=== PATIENT | male | born 1960 | race Caucasian/White ===

== ENCOUNTER 2023-07-17 11:09 | Emergency (ER) | payer OTHER, SELFPAY ==
[2023-07-17] VITALS (16 sets, daily range): BP systolic 151–211; BP diastolic 84–112; PULSE 81–104; RESP 10–33; TEMP 36.6; O2SAT 91–100; BMI 29.8
[2023-07-17 12:12] LABS: Alanine Aminotransferase 47 IU/L (<50); Albumin 4.8 g/dL (3.5-5.0); Albumin Globulin Ratio 1.4 (1.0-2.8); Alkaline Phosphatase 37 U/L (38-126); Aspartate Aminotransferase 32 IU/L (17-59); BUN Creatinine Ratio 13.1 (6-22); Bilirubin Total 0.8 mg/dL (0.2-1.3); Blood Urea Nitrogen 17 mg/dL (9-20); Calcium 10.3 mg/dL (8.4-10.2); Carbon Dioxide 25 mmol/L (22-32); Chloride 96 mmol/L (98-107); Estimated Glomerular Filt Rate > 60 mL/min (>60); Globulin 3.4 g/dL (1.7-4.1); Glucose 197 mg/dL (80-110); HEMOLYSIS 28 (0-50); Lipase 36 U/L (23-300); Potassium 4.2 mmol/L (3.4-5.1); Sodium 132 mmol/L (137-145); Total Protein 8.2 g/dL (6.3-8.2)
[2023-07-17 12:14] LABS: Creatine Kinase 97 U/L (55-170)
[2023-07-17 12:22] LABS: Add Manual Diff / Slide Review NO; Basophils Absolute Auto 0 /uL (0-100); Basophils Percent Auto 0.3 % (0-2); Eosinophils Absolute Auto 0 /uL (0-450); Eosinophils Percent Auto 0.1 % (2-4); Hemoglobin 15.6 g/dL (13.5-17.5); Lymphocytes Absolute Auto 500 /uL (1100-4500); Lymphocytes Percent Auto 4.4 % (25-40); Mean Corpuscular HGB Conc 35.4 % (30-36); Mean Corpuscular Hemoglobin 29.4 PG (26-34); Mean Corpuscular Volume 82.9 fL (80-100); Monocytes Absolute Auto 800 /uL (0-900); Monocytes Percent Auto 7.5 % (3-14); Neutrophils Absolute Auto 9300 /uL (1500-7000); Neutrophils Percent Auto 87.7 % (50-75); Platelet Count 246 X10^3/uL (150-400); Red Blood Cell Count 5.31 X10^6/uL (4.5-5.9); Red Cell Distribution Width 13.5 % (11.6-14.8); White Blood Cell Count 10.6 X10^3/uL (4.5-11.0)
[2023-07-17 12:23] LABS: Bacteria Urine None Seen; Culture Indicated Urine Cult Not Indicated; RBC Urine 1-5/HPF (0-5/HPF); Squamous Epithelial Cell Urine None Seen (0-5/HPF); WBC Urine None Seen (0-5/HPF)
[2023-07-17 12:27] LABS: Troponin I < 0.012 ng/mL (0.01-0.034)
[2023-07-17] MEDS: ONDANSETRON 4 MG/2 ML INJ IV (12:28)
[2023-07-17] MEDS: KETOROLAC 30 MG/ML VIAL 15 MG IV (12:59)
--- NOTE | 2023-07-17 14:43 | ED_ITS ---
HPI - Abdominal Pain General Chief Complaint: Abdominal Pain Stated Complaint: nausea/abd pain/vomitting/ Time Seen by Provider: 07/17/23 14:38 Source: patient Mode of arrival: Ambulatory Limitations: no limitations History of Present Illness HPI narrative: This is a 62-year-old male with history of prediabetes, dyslipidemia and known chronic kidney disease. Patient states last night after eating dinner he started developed left lower quadrant pain. He states it stayed in that position. He has not had any back or flank pain. He states has become increasingly intense overnight with waxing and waning intensity but severe throughout. Had trouble sleeping last night. Denies fevers did have nausea and vomiting overnight. Had bowel movement yesterday which he describes as medium, formed without any bright red blood or black. No dysuria urgency or frequency or hematuria. Patient has not had similar symptoms in the past. States he takes metformin and lovastatin for home medications. Has been told his creatinine is a little bit elevated in the past. Has had prior orthopedic surgeries for his knee and elbow, prior appendectomy, had back surgery in May. No known drug allergies. No tobacco other than a cigar when he coughs. No alcohol, no recreational drugs. His primary care is [facility] in [place]. They are currently transitioning up to the [facility]. Related Data Home Medications Medication Instructions Recorded Confirmed fenofibrate nanocrystallized 145 145 mg PO DAILY 07/17/23 07/17/23 mg tablet losartan 50 mg tablet 50 mg PO DAILY 07/17/23 07/17/23 lovastatin 40 mg tablet 40 mg PO DAILY 07/17/23 07/17/23 metformin 1,000 mg tablet 1,000 mg PO BID 07/17/23 07/17/23 Previous Rx's Medication Instructions Recorded oxycodone 5 mg tablet 5 mg PO Q6H PRN pain #20 tabs 07/17/23 tamsulosin 0.4 mg capsule (Flomax) 0.4 mg PO DAILY #7 caps 07/17/23 Allergies Allergy/AdvReac Type Severity Reaction Status Date / Time No Known Drug Allergies Allergy Verified 07/17/23 11:34 Review of Systems Review of Systems ROS Unobtainable: All systems reviewed & are unremarkable except as noted in HPI and below Patient History Social History Smoking Status: Former smoker Smoking Status: Former smoker alcohol intake frequency: a few times a week Substance Use Type: does not use Exam Narrative Exam Narrative: GENERAL: Alert and oriented x three, male in mild distress. Patient has received pain medication. HEENT: Head normocephalic, atraumatic, EOMI, pupils reactive, face symmetric, moist mucous membranes NECK: Supple, full range of motion CARDIOVASCULAR: Regular rate and rhythm without murmurs, rubs or gallops. RESPIRATORY: Breath sounds equal bilaterally, no wheezes rales or rhonchi. ABDOMEN: Soft, nontender. Normoactive bowel sounds all 4 quadrants. No guarding or rebound, rigidity, no mass : No CVA tenderness EXTREMITIES: Normal range of motion, no clubbing or edema. Neurovascularly intact NEUROLOGICAL: Cranial nerves II through XII grossly intact. Moving all extremities SKIN: Warm, dry, no petechiae, no rashes or lesions. Initial Vital Signs Initial Vital Signs: Vital Signs Temperature 97.9 F 07/17/23 11:31 Pulse Rate 104 H 07/17/23 11:31 Respiratory Rate 16 07/17/23 11:31 Blood Pressure 193/112 H 07/17/23 11:31 Pulse Oximetry 96 07/17/23 11:31 Oxygen Delivery Method Room Air 07/17/23 11:31 Course Orders Ordered: ED Orders 07/17/23 11:35 EKG-12 Lead Stat 07/17/23 11:58 Complete Blood Count AUTO DIFF Stat Comprehensive Metabolic Panel Stat Lipase Stat Troponin & CK Cardiac Panel Stat 07/17/23 12:00 Urine Microscopic Stat 07/17/23 14:52 CT abdomen pelvis w con Stat Discontinued Medications Sodium Chloride (Normal Saline 0.9%) 1,000 mls @ 1,000 mls/hr IV BOLUS ONE Stop: 07/17/23 15:52 Last Infusion: 07/17/23 17:00 Dose: Infused Documented By: Admin: 07/17/23 15:13 Dose: 1,000 mls/hr Documented By: URVASHI Ketorolac Tromethamine (Ketorolac 30 Mg/Ml Vial) 15 mg IV NOW ONE Stop: 07/17/23 12:42 Last Admin: 07/17/23 12:59 Dose: 15 mg Documented By: URVASHI Morphine Sulfate (Morphine 4 Mg/Ml Inj) 4 mg IV NOW ONE Stop: 07/17/23 16:37 Last Admin: 07/17/23 16:57 Dose: Not Given Documented By: URVASHI Ondansetron HCl (Ondansetron 4 Mg Odt) 4 mg PO NOW PRN PRN Reason: Nausea And Vomiting Ondansetron HCl (Ondansetron 4 Mg/2 Ml Inj) 4 mg IV NOW PRN PRN Reason: Nausea And Vomiting Last Admin: 07/17/23 12:28 Dose: 4 mg Documented By: URVASHI Oxycodone/Acetaminophen (Oxycodone/Acetaminophen 5/325 Tablet) 2 tab PO NOW ONE Stop: 07/17/23 16:57 Last Admin: 07/17/23 16:59 Dose: 2 tab Documented By: URVASHI Vital Signs Vital signs: Vital Signs - 8 hr 07/17/23 11:31 07/17/23 11:59 07/17/23 12:00 Temperature 97.9 F Pulse Rate 104 H 93 H Respiratory Rate 16 Blood Pressure 193/112 H 196/101 H Pulse Oximetry 96 97 Oxygen Delivery Method Room Air 07/17/23 12:00 07/17/23 12:30 07/17/23 12:31 Temperature Pulse Rate 93 H 88 Respiratory Rate 10 L Blood Pressure 181/87 H Pulse Oximetry 97 99 Oxygen Delivery Method 07/17/23 12:31 07/17/23 13:00 07/17/23 13:01 Temperature Pulse Rate 87 91 H Respiratory Rate 10 L 33 H Blood Pressure 211/110 H Pulse Oximetry 98 96 Oxygen Delivery Method 07/17/23 13:01 07/17/23 13:30 07/17/23 13:31 Temperature Pulse Rate 89 90 91 H Respiratory Rate 23 Blood Pressure Pulse Oximetry 91 93 93 Oxygen Delivery Method 07/17/23 13:31 07/17/23 14:00 07/17/23 14:00 Temperature Pulse Rate 86 Respiratory Rate 16 Blood Pressure 158/87 H 151/84 H Pulse Oximetry 95 Oxygen Delivery Method Room Air 07/17/23 14:30 07/17/23 14:30 07/17/23 15:09 Temperature Pulse Rate 85 88 Respiratory Rate Blood Pressure 163/93 H Pulse Oximetry 97 97 Oxygen Delivery Method 07/17/23 15:30 07/17/23 16:00 07/17/23 16:15 Temperature Pulse Rate 81 84 Respiratory Rate Blood Pressure 186/94 H Pulse Oximetry 96 96 Oxygen Delivery Method 07/17/23 16:15 07/17/23 16:30 07/17/23 16:30 Temperature Pulse Rate 86 94 H Respiratory Rate Blood Pressure 179/91 H Pulse Oximetry 98 100 Oxygen Delivery Method MDM - Abdominal Pain Lab Data 07/17/23 11:58 07/17/23 11:58 Labs: Lab Results 07/17/23 07/17/23 Range/Units 11:58 12:00 WBC 10.6 (4.5-11.0) X10^3/uL RBC 5.31 (4.5-5.9) X10^6/uL Hgb 15.6 (13.5-17.5) g/dL Hct 44.0 (41-53) % MCV 82.9 (80-100) fL MCH 29.4 (26-34) PG MCHC 35.4 (30-36) % RDW 13.5 (11.6-14.8) % Plt Count 246 (150-400) X10^3/uL Neut % (Auto) 87.7 H (50-75) % Lymph % (Auto) 4.4 L (25-40) % [place] % (Auto) 7.5 (3-14) % Eos % (Auto) 0.1 L (2-4) % Baso % (Auto) 0.3 (0-2) % Neut # (Auto) 9300 H (6386-1948) /uL Lymph # (Auto) 500 L (2934-8351) /uL [place] # (Auto) 800 (0-900) /uL Eos # (Auto) 0 (0-450) /uL Baso # (Auto) 0 (0-100) /uL Sodium 132 L (137-145) mmol/L Potassium 4.2 (3.4-5.1) mmol/L Chloride 96 L (98-107) mmol/L Carbon Dioxide 25 (22-32) mmol/L BUN 17 (9-20) mg/dL Creatinine 1.30 H (0.66-1.25) mg/dL Estimated GFR > 60 (>60) mL/min BUN/Creatinine Ratio 13.1 (6-22) Glucose 197 H (80-110) mg/dL Calcium 10.3 H (8.4-10.2) mg/dL Total Bilirubin 0.8 (0.2-1.3) mg/dL AST 32 (17-59) IU/L ALT 47 (<50) IU/L Alkaline Phosphatase 37 L (38-126) U/L Total Creatine Kinase 97 (55-170) U/L Troponin I < 0.012 (0.01-0.034) ng/mL Total Protein 8.2 (6.3-8.2) g/dL Albumin 4.8 (3.5-5.0) g/dL Globulin 3.4 (1.7-4.1) g/dL Albumin/Globulin Ratio 1.4 (1.0-2.8) Lipase 36 (23-300) U/L Urine RBC 1-5/hpf (0-5/HPF) Urine WBC None seen (0-5/HPF) Ur Squamous Epith Cells None seen (0-5/HPF) Urine Bacteria None seen (None) Ur Culture Indicated? Cult not indicated Point of care testing: Urine Dip Bedside Urine Glucose 1000 mg/dl Bedside Urine Bilirubin - Negative Bedside Urine Ketone +/- 5 Urine Specific [place] 1.020 Bedside Urine Occult Blood +/- Bedside Urine pH 6.0 Bedside Urine Protein +/- 15 Bedside Urine Urobilinogen - Negative Bedside Urine Nitrite - Negative Bedside Urine Leukocytes - Negative Esterase Imaging Data CT scan - abdomen/pelvis: Radiologist's Impression: Close Abdomen/Pelvis CT (Signed) Jamie Downing - 07/17/23 [place] [address] CT Scan Report Signed Patient: Hesham Temple MR#: [id number] : 1960 Acct:[id number] Age/Sex: 62 / M Date of Service: 07/17/23 Loc: ED Accession Number: [id number] Procedure: CT abdomen pelvis w con Ordering Provider: Haleigh Torres D.O. PROCEDURE: CT ABDOMEN PELVIS W CON INDICATIONS: LLQ pain, no flank diverticulitis? TECHNIQUE: After the administration of intravenous contrast, axial sections acquired from the lung bases to the pubic symphysis. Coronal and sagittal reformats were performed. For radiation dose reduction, the following was used: automated exposure control, adjustment of mA and/or kV according to patient size. COMPARISON: None. FINDINGS: Image quality: Diagnostic. Lower Chest: Calcification of the coronary vasculature is present. ABDOMEN: Liver: Liver is enlarged and demonstrates diffusely decreased density without focal mass. Gallbladder: No radiopaque gallstones or wall thickening. Biliary ducts: No biliary dilation. Pancreas: No ductal dilation. Spleen: Size is within normal limits. Adrenal Glands: No adrenal nodules. Kidneys and Ureters: Mild left hydronephrosis. No right hydronephrosis. Nonobstructing 2 mm calculus within the left interpolar kidney. No solid mass. No complex renal cystic lesion which requires follow up. Moderate left and mild right perinephric fat stranding. 3 mm calculus within the left mid/distal ureter. Stomach and Bowel: Normal colonic caliber, without significant wall thickening. Appendix is not seen. No evidence of appendicitis. Peritoneum: No abnormal intraperitoneal fluid. No free air. Ventral Wall: No hernia. Abdominal Nodes: No retroperitoneal or mesenteric adenopathy by size criteria. Vessels: Aorta and inferior vena cava are normal in size. PELVIS: Pelvic Organs: Unremarkable. Bladder: Unremarkable. Pelvic Nodes: No enlarged lymph nodes. Miscellaneous: No inguinal hernias are seen. Bones: No aggressive osseous abnormality. IMPRESSION: 1. Left ureteral calculus associated with mild left hydronephrosis. 2. Nonobstructing left intrarenal calculus. 3. Hepatic steatosis. Dictated by: Jamie Downing M.D. on 07/17/2023 at 15:53 Approved by: Jamie Downing M.D. on 07/17/2023 at 15:56 ECG Data Attestation: I personally reviewed and interpreted this ECG as follows: Prior ECG tracings: available for review Interpretation: Sinus rhythm rate 88 GA 190 QRS of 92 QTC 404. No acute ST changes appreciated nonspecific change MDM Narrative Medical decision making narrative: 62-year-old male presents with complaint of left lower quadrant pain fairly sudden onset last night. Patient developed nausea and vomiting overnight, quite a bit of pain. Has not had a bowel movement since yesterday but had a normal formed stool yesterday. Diverticulitis, kidney stone versus other all within the differential. Patient was hypertensive improving with pain management. Patient had Toradol feels significantly improved at this time. Was sleeping when I initially saw him. Hemoglobin 15.6 hematocrit of 44, platelets 246, leftward shift white count of 10.6. Chemistries sodium 132 chloride 96 creatinine of 1.30. No priors in EMR but patient and family note has been similar in the past. Calcium is 10.3. Alk-phos is 37 otherwise normal LFTs. Negative troponin nonspecific change on EKG. Urine shows glucose, 1-5 RBCs, ketones, protein and blood. Patient was much improved after pain medication but was quite painful when he initially arrived. Plan for CT abdomen pelvis which shows kidney stone. Patient states been improved but is starting to creep back we will give additional dose of pain medication here. Patient's creatinine is reportedly at his baseline. Plan for Flomax, pain control and follow up with Urology. Discharge Plan Departure Patient Disposition: Home Clinical Impression: Kidney stone on left side Instructions: DI for Kidney Stones Activity Restrictions/Additional Instructions: Please follow up for recheck if your symptoms have not resolved in the next day or two. Please call to set up follow-up with Urology contact information as below. You do have a kidney stone on the left side which is about 3 mm in size Take Flomax once daily until gone. You may take Tylenol a 1000 mg every 6 hours as needed for pain. You may take 1-2 tablets of oxycodone every 6 hours as needed for pain. This medication can make you sleepy do not drive, perform hazardous activities or make any major decisions while taking it. This medication will make you constipated please take a stool softener once to twice daily until stools are soft and regular. Prescription sent to [facility] in [place]. Please return for fevers, new or worsening abdominal back or flank pain, persistent vomiting, lightheadedness or passing out, black or bloody stools or other new or concerning changes. Prescriptions: New tamsulosin [Flomax] 0.4 mg capsule 0.4 mg PO DAILY Qty: 7 0RF oxycodone 5 mg tablet 5 mg PO Q6H PRN (Reason: pain) Qty: 20 0RF No Action losartan 50 mg tablet 50 mg PO DAILY lovastatin 40 mg tablet 40 mg PO DAILY metformin 1,000 mg tablet 1,000 mg PO BID fenofibrate nanocrystallized 145 mg tablet 145 mg PO DAILY Referrals: Jose Dowd MD [Physician] - Stand Alone Forms: Patient Portal/API
--- NOTE | 2023-07-17 14:52 | DI.CT.S_ITS ---
PROCEDURE: CT ABDOMEN PELVIS W CON INDICATIONS: LLQ pain, no flank diverticulitis? TECHNIQUE: After the administration of intravenous contrast, axial sections acquired from the lung bases to the pubic symphysis. Coronal and sagittal reformats were performed. For radiation dose reduction, the following was used: automated exposure control, adjustment of mA and/or kV according to patient size. COMPARISON: None. FINDINGS: Image quality: Diagnostic. Lower Chest: Calcification of the coronary vasculature is present. ABDOMEN: Liver: Liver is enlarged and demonstrates diffusely decreased density without focal mass. Gallbladder: No radiopaque gallstones or wall thickening. Biliary ducts: No biliary dilation. Pancreas: No ductal dilation. Spleen: Size is within normal limits. Adrenal Glands: No adrenal nodules. Kidneys and Ureters: Mild left hydronephrosis. No right hydronephrosis. Nonobstructing 2 mm calculus within the left interpolar kidney. No solid mass. No complex renal cystic lesion which requires follow up. Moderate left and mild right perinephric fat stranding. 3 mm calculus within the left mid/distal ureter. Stomach and Bowel: Normal colonic caliber, without significant wall thickening. Appendix is not seen. No evidence of appendicitis. Peritoneum: No abnormal intraperitoneal fluid. No free air. Ventral Wall: No hernia. Abdominal Nodes: No retroperitoneal or mesenteric adenopathy by size criteria. Vessels: Aorta and inferior vena cava are normal in size. PELVIS: Pelvic Organs: Unremarkable. Bladder: Unremarkable. Pelvic Nodes: No enlarged lymph nodes. Miscellaneous: No inguinal hernias are seen. Bones: No aggressive osseous abnormality. IMPRESSION: 1. Left ureteral calculus associated with mild left hydronephrosis. 2. Nonobstructing left intrarenal calculus. 3. Hepatic steatosis. Dictated by: Jamie Downing M.D. on 07/17/2023 at 15:53 Approved by: Jamie Downing M.D. on 07/17/2023 at 15:56
[2023-07-17] MEDS: SODIUM CHLORIDE 0.9% 1,000 ML 1000 ML IV (15:13)
[2023-07-17] MEDS: OXYCODONE/ACETAMINOPHEN 5/325 TABLET 2 TAB PO (16:59)
== END 2023-07-17 17:01 | disposition home or self-care (01) ==
PROVIDERS: Emergency Provider Emergency Medicine
DX: N20.0 Calculus of kidney (principal); R11.2 Nausea with vomiting, unspecified; I10 Essential (primary) hypertension
CPT/HCPCS: 36415; 74177; 80053; 81003; 81015; 82550; 83690; 84484; 85025; 93005; 93010; 96361; 96374; 96375; 99284; J1885; J2405; Q9967

== ENCOUNTER → 2024-06-23 07:01 | Outpatient (CLI) | payer BC, SELFPAY ==
--- NOTE | 2024-06-23 07:02 | DI.ECHO.S_ITS ---
[facility] : : [address] : [facility] : : [place], : : [place] [address] : : Phone: [phone] Echocardiogram Report + + :Name: HORTENCIA DELGADO Study Date: 06/23/2024 Height: 72 in : :[facility] ReadingLocation: Weight: 230 lb : : Gender: Male BSA: 2.3 m2 : :: 1960 Age: 63 yrs BP: 176/102 mmHg: :Reason For Study: MURMUR : :Ordering Physician: NOMAN, : :ANDREA Performed By: Tomi Hadley : :Referring: ANDREA TINEO : + + Interpretation Summary 1) Moderately increased left ventricular thickness (concentric) with normal size, normal wall motion, and normalsystolic function (EF 65-70%). 2) Normal right ventricular size and function. 3) There is mild aortic stenosis (valve area 1.6cm2, mean gradient 17.5mmHg, severity ratio 0.4). 4) The ascending aorta is mildly enlarged at 3.8cm. 5) Hypertension present during the study. (BP 176/102mmHg). 6) No prior Echo available for comparison. Procedure: A two-dimensional transthoracic echocardiogram with color flow and Doppler was performed. The study quality was technically good. There is no prior echocardiogram noted for this patient. The patient was in normal sinus rhythm during the exam. Left Ventricle: The left ventricle is normal in size. There is moderate concentric left ventricular hypertrophy. There is no ventricular septal defect visualized. The ejection fraction is estimated to be 65-70%. There are no focal wall motion abnormalities. Diastolic function could not be accurately assessed due to contradictory data. Right Ventricle: The right ventricle is normal in size and function. Atria: The left atrial size is normal. Right atrial size is normal. There is no Doppler evidence for an interatrial shunt. Mitral Valve: There is mild to moderate mitral annular calcification. The mitral valve leaflets appear mildly thickened, but open well. There is trace mitral regurgitation. Aortic Valve: The aortic valve is trileaflet. There is moderate aortic valve sclerosis. There is mild aortic stenosis. The peak aortic velocity is 2.56 m/sec. The aortic valve mean gradient is 17.5 mmHg. No aortic regurgitation is present. Tricuspid Valve: The tricuspid valve leaflets are thin and pliable. No tricuspid regurgitation. Pulmonic Valve: The pulmonic valve is not well seen, but is grossly normal. There is no pulmonic valvular regurgitation. Great Vessels: The aortic root is normal size. The ascending aorta is mildly enlarged. The pulmonary artery is normal size. The IVC is dilated (diameter is greater than 2.1 cm) yet it collapses greater than 50% with a sniff. This suggests a right atrial pressure of 8 mm Hg. Pericardium/ Pleura There is no pericardial effusion. There is no pleural effusion. MMode/2D Measurements & Calculations LVIDd: 3.9 cm AoV Openin.4 cm LVIDs: 2.4 cm LVOT diam: 2.2 cm IVSd: 1.8 cm Ao root diam: 3.5 cm LVPWd: 1.6 cm asc Aorta Diam: 3.8 cm LV oconnor. diameter/BSA (cm/m^2): 1.7 LV sys. diameter/BSA (cm/m^2): 1.1 FS: 39.2 % EPSS: 0.41 cm LA A2 area: 17.9 cm2 RA long axis: 5.1 cm LA A4 area: 24.5 cm2 RA area: 14.4 cm2 LA length (vol): 5.9 cm RA vol: 34.4 ml LA vol: 62.4 ml RA : 15.2 ml/m2 LA vol index: 27.6 ml/m2 RVD1 (basal): 3.8 cm IVC diam: 2.4 cm RVD2 (mid): 3.7 cm TAPSE: 2.3 cm Doppler Measurements & Calculations Ao V2 max: 255.9 cm/sec LVOT Max Phi: 110.1 cm/sec Ao V2 mean: 201.4 cm/sec LV V1 max P.9 mmHg Ao V2 VTI: 64.4 cm LV V1 VTI: 25.6 cm Ao max P.2 mmHg Ao mean P.5 mmHg BRITTANI(I,D): 1.5 cm2 MV E max phi: 82.9 cm/sec BRITTANI(V,D): 1.6 cm2 MV A max phi: 70.7 cm/sec BRITTANI indexed to BSA (cm^2/m^2): 0.65 MV E/A: 1.2 sev ratio: 0.40 Med Peak E' Phi: 5.3 cm/sec E/E' med: 15.7 Lat Peak E' Phi: 7.4 cm/sec E/E' lat: 11.3 E/e' average: 13.5 MV dec time: 0.20 sec PA V2 max: 57.4 cm/sec PA V2 mean: 39.3 cm/sec PA mean P.69 mmHg PA pr(Accel): 53.3 mmHg SV(LVOT): 95.1 ml Reading Physician:12:11 PM
== END ==
PROVIDERS: PCP Family Medicine; Referring Provider Family Medicine; Visit Provider Family Medicine
DX: I34.81 Nonrheumatic mitral (valve) annulus calcification (principal); I35.0 Nonrheumatic aortic (valve) stenosis; I77.89 Other specified disorders of arteries and arterioles; R01.1 Cardiac murmur, unspecified
CPT/HCPCS: 93306

== ENCOUNTER 2024-07-19 20:32 | Emergency (ER) | payer BC, SELFPAY ==
[2024-07-19] VITALS (10 sets, daily range): BP systolic 134–192; BP diastolic 73–91; PULSE 69–92; RESP 15–19; TEMP 36.6; O2SAT 93–97; BMI 31.1
--- NOTE | 2024-07-19 20:39 | EKG_ITS ---
[place] [address] [address] [place] [id number] Test Date: 2024-07-19 Pat Name: Hesham Temple Department: [facility] Room: Gender: Male Hand Roller: NICHOLE CORONEL : 1960 Requested By: Order Number: [id number] Reading MD: Robin Do MD Measurements Intervals [place] Rate: 88 P: 61 KS: 164 QRS: 48 QRSD: 92 T: 53 QT: 354 QTc: 428 Interpretive Statements Normal sinus rhythm Incomplete right bundle branch block Nonspecific T wave abnormality NO SIGNIFICANT CHANGE FROM PRIOR TRACING Electronically Signed On 07-21-2024 13:38:29 PST by Robin Do MD
--- NOTE | 2024-07-19 20:42 | DI.RAD.S_ITS ---
PROCEDURE: XR CHEST 1V INDICATIONS: chest pain TECHNIQUE: One view of the chest was acquired. COMPARISON: None. FINDINGS: Surgical changes and devices: None. Lungs and pleura: Lungs are clear. No pleural effusions or pneumothorax. Mediastinum: Mediastinal contours appear normal. Heart size is normal. Bones and chest wall: No suspicious bony lesions. Overlying soft tissues appear unremarkable. IMPRESSION: No acute cardiopulmonary abnormality is seen. Dictated by: Celio Rosenbaum M.D. on 07/19/2024 at 21:16 Approved by: Celio Rosenbaum M.D. on 07/19/2024 at 21:16
--- NOTE | 2024-07-19 20:44 | ED.CHESTPAIN ---
HPI - Chest Pain General Chief Complaint: Chest Pain Stated Complaint: HBP 227/108, chest px Time Seen by Provider: 07/19/24 20:34 Source: patient Mode of arrival: Ambulatory Limitations: no limitations History of Present Illness HPI narrative: 63yoM with PMH HLD, NIDDM (A1C 6.1), HTN presents from home by private vehicle for 1hr of L sided mild chest pain that does not radiate. Pain began this evening while watching football. States that this week he began to measure BPs on a home wrist cuff, and after noticing pain he took his BP, which was 227/110. BPs this week averaging 150-160 systolic. No medications taken prior to arrival. Reports hx of CVA in his grandfather, no definitive hx of heart disease in siblings. Echocardiogram 1 month ago with PCP due to murmur auscultated on exam (EF 65-70%, mild aortic stenosis, BP noted to be 176/102mmHg at that time) Related Data Home Medications Medication Instructions Recorded Confirmed glipizide 5 mg tablet 5 mg PO DAILY 05/14/24 05/14/24 Previous Rx's Medication Instructions Recorded losartan 50 mg tablet 50 mg PO DAILY #100 tabs 04/18/24 metformin 1,000 mg tablet 1,000 mg PO BID #180 tabs 04/18/24 rosuvastatin 40 mg tablet (Crestor) 40 mg PO DAILY #90 tabs 04/18/24 Allergies Allergy/AdvReac Type Severity Reaction Status Date / Time No Known Drug Allergies Allergy Verified 07/19/24 20:41 Patient History Medical History Heart murmur Hyperlipemia (07/02/21) Hypertension (07/02/21) Diabetes (07/02/21) Benign essential hypertension Hyperlipidemia, unspecified Type 2 diabetes mellitus without complication, with no history of insulin use Surgical History [place] teeth removed (07/02/79) History of appendectomy (07/02/81) Social History Smoking Status: Current some day smoker Smoking Status: Current some day smoker tobacco type: cigars alcohol intake frequency: a few times a week Exam Initial Vital Signs Initial Vital Signs: Vital Signs Pulse Rate 92 H 07/19/24 20:37 Blood Pressure 192/91 H 07/19/24 20:37 Pulse Oximetry 97 07/19/24 20:37 Const: Awake, alert, no acute distress, nontoxic appearing Cardiac: regular rate, regular rhythm, systolic murmur present RESP: unlabored, clear bilaterally, no wheezing GI: Soft, nontender, nondistended MSK: no edema, full range of motion, pulses equal Skin: Warm, Dry, intact, no rashes Neuro: AO x3, CN II-XII grossly intact, moves all extremities Course Orders Ordered: ED Orders 07/19/24 20:34 EKG-12 Lead Stat 07/19/24 20:40 Complete Blood Count AUTO DIFF Stat Comprehensive Metabolic Panel Stat Lipase Stat NT-proBNP (BNP-Adult 18+) Stat Prothrombin Time INR Stat Troponin & CK Cardiac Panel Stat 07/19/24 20:42 XR chest 1V Stat EKG-12 Lead Stat 07/19/24 22:30 Trop I [Troponin I] Stat Discontinued Medications Aspirin (Aspirin 81 Mg Chew Tab) 324 mg PO NOW ONE Stop: 07/19/24 20:43 Last Admin: 07/19/24 20:48 Dose: 324 mg Documented By: GIOVANA Vital Signs Vital signs: Vital Signs - 8 hr 07/19/24 20:37 07/19/24 20:37 07/19/24 20:39 Temperature 97.8 F Pulse Rate 92 H 91 H Respiratory Rate 18 Blood Pressure 192/91 H 192/91 H Pulse Oximetry 97 97 Oxygen Delivery Method Room Air 07/19/24 21:00 07/19/24 21:01 07/19/24 21:01 Temperature Pulse Rate 83 84 Respiratory Rate 16 19 Blood Pressure 147/75 H Pulse Oximetry 94 95 Oxygen Delivery Method 07/19/24 21:30 07/19/24 21:30 07/19/24 22:00 Temperature Pulse Rate 77 Respiratory Rate 15 Blood Pressure 134/73 140/75 Pulse Oximetry 93 Oxygen Delivery Method 07/19/24 22:00 07/19/24 22:29 07/19/24 22:30 Temperature Pulse Rate 80 74 Respiratory Rate 16 17 Blood Pressure 141/77 H Pulse Oximetry 95 95 Oxygen Delivery Method 07/19/24 22:31 Temperature Pulse Rate 69 Respiratory Rate 16 Blood Pressure Pulse Oximetry 95 Oxygen Delivery Method MDM - Chest Pain Differential Diagnosis Differential diagnosis: Likely atypical chest pain, st elevation myocardial infarction, costochondritis and chest pain Lab Data 07/19/24 20:40 07/19/24 20:40 Labs: Lab Results 07/19/24 07/19/24 Range/Units 20:40 22:30 WBC 13.0 H (4.5-11.0) X10^3/uL RBC 5.36 (4.5-5.9) X10^6/uL Hgb 15.8 (13.5-17.5) g/dL Hct 46.0 (41-53) % MCV 85.8 (80-100) fL MCH 29.5 (26-34) PG MCHC 34.4 (30-36) % RDW 14.2 (11.6-14.8) % Plt Count 257 (150-400) X10^3/uL Neut % (Auto) 79.7 H (50-75) % Lymph % (Auto) 11.5 L (25-40) % [place] % (Auto) 7.9 (3-14) % Eos % (Auto) 0.5 L (2-4) % Baso % (Auto) 0.4 (0-2) % Neut # (Auto) 60906 H (6797-1638) /uL Lymph # (Auto) 1500 (5358-4062) /uL [place] # (Auto) 1000 H (0-900) /uL Eos # (Auto) 100 (0-450) /uL Baso # (Auto) 100 (0-100) /uL PT 11.9 (9.4-12.5) SECONDS INR 1.1 (0.9-1.3) Sodium 134 L (137-145) mmol/L Potassium 4.1 (3.4-5.1) mmol/L Chloride 97 L (98-107) mmol/L Carbon Dioxide 27 (22-32) mmol/L BUN 17 (9-20) mg/dL Creatinine 0.95 (0.66-1.25) mg/dL Estimated GFR > 60 (>60) mL/min BUN/Creatinine Ratio 17.9 (6-22) Glucose 104 (80-110) mg/dL Calcium 9.7 (8.4-10.2) mg/dL Total Bilirubin 0.6 (0.2-1.3) mg/dL AST 44 (17-59) IU/L ALT 72 H (<50) IU/L Alkaline Phosphatase 46 (38-126) U/L Total Creatine Kinase 138 (55-170) U/L Troponin I < 0.012 < 0.012 (0.01-0.034) ng/mL NT-Pro-B Natriuret Pep 49 (<125) pg/mL Total Protein 8.0 (6.3-8.2) g/dL Albumin 4.9 (3.5-5.0) g/dL Globulin 3.1 (1.7-4.1) g/dL Albumin/Globulin Ratio 1.6 (1.0-2.8) Lipase 237 (23-300) U/L Imaging Data Chest x-ray: Radiologist's Impression: PROCEDURE: XR CHEST 1V INDICATIONS: chest pain TECHNIQUE: One view of the chest was acquired. COMPARISON: None. FINDINGS: Surgical changes and devices: None. Lungs and pleura: Lungs are clear. No pleural effusions or pneumothorax. Mediastinum: Mediastinal contours appear normal. Heart size is normal. Bones and chest wall: No suspicious bony lesions. Overlying soft tissues appear unremarkable. IMPRESSION: No acute cardiopulmonary abnormality is seen. Dictated by: Celio Rosenbaum M.D. on 07/19/2024 at 21:16 Approved by: Celio Rosenbaum M.D. on 07/19/2024 at 21:16 ECG Data Interpretation: NSR at 88bpm. normal [place]. no STEMI. Compared to EKG 07/17/23 no significant change found MDM Narrative Medical decision making narrative: Well-appearing patient with very mild left-sided chest pain and elevated blood pressure readings at home. Patient states that his pain is currently a 1/10 and very mild, however he did have a brother who recently had a stroke and with his elevated blood pressure reading he became very concerned. Patient has absolutely no signs of stroke on either history or on physical exam. EKG normal sinus rhythm, no significant change from EKG taken in our system on 07/17/2023. Laboratory work reviewed, no significant abnormalities identified. Without any pharmacologic intervention patient's blood pressure decreased to systolic 130-140, which is actually even better than what patient has logged on his home blood pressure cuff. Troponins undetectable x2. Chest x-ray negative for acute findings. Patient and his at bedside notified of lab and imaging findings. They are relieved with the results. I did recommend that patient continue to follow up with his primary care doctor. Cardiology phone number referral provided. ED return precautions discussed at bedside. Discharge Plan Departure Patient Disposition: Home Clinical Impression: Chest pain Instructions: DI for Chest Pain Activity Restrictions/Additional Instructions: Your laboratory work, EKG, and chest x-ray today were normal. I do not know the exact cause of your chest pain but it does not appear to be a heart attack at this time. With your age and risk factors I would discuss a cardiology referral with your primary care physician. Continue to record your blood pressures at home with your cuff. If you have any concerning symptoms such as worsening chest pains, shortness of breath, worst headache of your life, or any other concerning symptoms please feel free to return to the emergency department for repeat evaluation. Prescriptions: No Action glipizide 5 mg tablet 5 mg PO DAILY losartan 50 mg tablet 50 mg PO DAILY Qty: 100 3RF metformin 1,000 mg tablet 1,000 mg PO BID Qty: 180 3RF rosuvastatin [Crestor] 40 mg tablet 40 mg PO DAILY Qty: 90 3RF Referrals: Skyler Nath MD [Physician] - John Bethea DO [Primary Care Provider] - Stand Alone Forms: Patient Portal/API/Survey
[2024-07-19] MEDS: ASPIRIN 81 MG CHEW TAB 324 MG PO (20:48)
[2024-07-19 20:51] LABS: Add Manual Diff / Slide Review NO; Basophils Absolute Auto 100 /uL (0-100); Basophils Percent Auto 0.4 % (0-2); Eosinophils Absolute Auto 100 /uL (0-450); Eosinophils Percent Auto 0.5 % (2-4); Hemoglobin 15.8 g/dL (13.5-17.5); Lymphocytes Absolute Auto 1500 /uL (1100-4500); Lymphocytes Percent Auto 11.5 % (25-40); Mean Corpuscular HGB Conc 34.4 % (30-36); Mean Corpuscular Hemoglobin 29.5 PG (26-34); Mean Corpuscular Volume 85.8 fL (80-100); Monocytes Absolute Auto 1000 /uL (0-900); Monocytes Percent Auto 7.9 % (3-14); Neutrophils Absolute Auto 10400 /uL (1500-7000); Neutrophils Percent Auto 79.7 % (50-75); Platelet Count 257 X10^3/uL (150-400); Red Blood Cell Count 5.36 X10^6/uL (4.5-5.9); Red Cell Distribution Width 14.2 % (11.6-14.8)
[2024-07-19 20:56] LABS: INR 1.1 (0.9-1.3); Prothrombin Time 11.9 SECONDS (9.4-12.5)
[2024-07-19 21:00] LABS: Alanine Aminotransferase 72 IU/L (<50); Albumin 4.9 g/dL (3.5-5.0); Albumin Globulin Ratio 1.6 (1.0-2.8); Alkaline Phosphatase 46 U/L (38-126); Aspartate Aminotransferase 44 IU/L (17-59); BUN Creatinine Ratio 17.9 (6-22); Bilirubin Total 0.6 mg/dL (0.2-1.3); Blood Urea Nitrogen 17 mg/dL (9-20); Calcium 9.7 mg/dL (8.4-10.2); Carbon Dioxide 27 mmol/L (22-32); Chloride 97 mmol/L (98-107); Creatine Kinase 138 U/L (55-170); Estimated Glomerular Filt Rate > 60 mL/min (>60); Globulin 3.1 g/dL (1.7-4.1); Glucose 104 mg/dL (80-110); HEMOLYSIS 31 (0-50); Lipase 237 U/L (23-300); Potassium 4.1 mmol/L (3.4-5.1); Sodium 134 mmol/L (137-145)
[2024-07-19 21:10] LABS: NT-proBNP (BNP-Adult 18+) 49 pg/mL (<125)
[2024-07-19 21:12] LABS: Troponin I < 0.012 ng/mL (0.01-0.034)
[2024-07-19 23:02] LABS: Troponin I < 0.012 ng/mL (0.01-0.034)
== END 2024-07-19 23:20 | disposition home or self-care (01) ==
PROVIDERS: Emergency Provider Emergency Medicine; PCP Family Medicine
DX: R07.9 Chest pain, unspecified (principal); I10 Essential (primary) hypertension
CPT/HCPCS: 36415; 71045; 80053; 82550; 83690; 83880; 84484; 85025; 85610; 93005; 93010; 99284

== ENCOUNTER → 2024-07-29 15:01 | Outpatient (CLI) | payer BC, SELFPAY ==
--- NOTE | 2024-07-29 18:27 | DI.NM.S_ITS ---
DATE OF SERVICE: 07/29/2024 EXERCISE STRESS TEST INDICATIONS: Chest pain with underlying diabetes mellitus, hypertension, hyperlipidemia, tobacco abuse. CARDIAC STRESS: Patient underwent exercise stress test under the supervision of an attending staff. He walked on William protocol for 8 minutes. Achieved maximum heart rate of 161, which was 101% of target heart rate. Resting blood pressure 150/90 and peak blood pressure 198/98 mmHg. DARRIN positive 5%. 10.1 METS of workload. Baseline rhythm was sinus with up to 0.[address] depression in inferior leads with T-wave inversion, as well as ST flattening and T-wave inversion in leads V3 to V6. During exercise, those ST changes got more pronounced up to 1 to 1.[address] depression in inferior leads and leads V3 to V6. In recovery, there was slow resolution of those ST segments. No chest pain. Rare PVCs without any ventricular tachycardia. The patient had moderate shortness of breath and fatigue. CONCLUSION: Exercise stress test is inconclusive for inducible ischemia due to baseline ST-T changes as stated above. Walked on William protocol for about 8 minutes. 10.1 METS of workload. Hypertensive to begin with. No significant arrhythmias. No chest pain; however, had shortness of breath. Consider repeating exercise stress test with imaging modality like perfusion study or exercise stress echo for further CAD diagnosis and risk stratification. Hesham Temple - CHRISTOPHE/jessica/NIR doc#: [id number]/job#: [id number] dd: 07/29/2024 17:08:00 dt: 07/29/2024 18:10:00 DICTATING MD/COPIES TO: Alcon Ingram MD; Dr. Bethea COPIES MNE: SHAYNA; ; Dr. Bethea
== END ==
PROVIDERS: PCP Family Medicine; Referring Provider Family Medicine; Visit Provider Family Medicine
DX: R07.9 Chest pain, unspecified (principal); I10 Essential (primary) hypertension; E11.9 Type 2 diabetes mellitus without complications; R06.02 Shortness of breath
CPT/HCPCS: 93017

== ENCOUNTER → 2024-08-22 09:42 | Outpatient (CLI) | payer BC, SELFPAY ==
--- NOTE | 2024-08-22 09:43 | DI.NM.S_ITS ---
PROCEDURE: NM LARISA PERF SPECT REST & STR Rest and exercise myocardial perfusion SPECT with gated imaging and ejection fraction RADIOPHARMACEUTICAL: 12.6 mCi Tc-99m sestamibi IV at rest and 24.9 mCi Tc-99m sestamibi IV at peak exercise. A 0-tud-sqttxgra was performed. INDICATIONS: Chest pain. Inconclusive treadmill test. TECHNIQUE: Radiopharmaceutical was injected at peak stress test, and also at rest. SPECT images were obtained. SPECT myocardial perfusion images were displayed in short axis, horizontal long axis, and vertical long axis views. Gated images were reviewed using Triangulate software. COMPARISON: None. CARDIAC STRESS: A standard William treadmill exercise tolerance test was performed by the patient under the supervision of an attending staff. The patient exercised for 7 minutes and 03 seconds; 8.0 METS; functional aerobic impairment (DARRIN) is +12%. Hemodynamic data: There is normal blood pressure and heart rate response to exercise stress. Patient achieved 99% of maximum predicted heart rate at peak exercise. Peak blood pressure 178/98. Symptoms: Patient denied chest pain during exercise. EKG: Rest ECG sinus rhythm, anterolateral T wave inversions, 81 bpm. Exercise ECG sinus tachycardia 1.[address] segment depressions II, III, aVF, V3-V6. FINDINGS: Raw data: There is good myocardial labeling by radiotracer. No significant motion artifacts. Oixc-ku-xihwn ratio is 0.26 (normal is less than 0.38 for sestamibi tracer, and less than 0.50 for thallium tracer). Left ventricle function: Gated images demonstrate normal left ventricle wall thickening. No segmental wall motion abnormality. No transient ischemic dilation; TID is 1.02 (normal less than 1.3). The left ventricle resting end-diastolic volume is 103 mL. Left ventricle stress ejection fraction is 72%; normal values are above 45%. Myocardial perfusion: There is normal distribution of activity in the left and right ventricular myocardium. No fixed or reversible perfusion defects. IMPRESSION: Low risk study. No evidence of exercise-induced ischemia on SPECT imaging. Abnormal exercise ECG occurring in the setting of normal perfusion imaging. Normal LV size and function. Normal hemodynamic response to exercise. Reduced exercise capacity. Dictated by: Carmina Royal D.O. on 08/22/2024 at 17:02 Approved by: Carmina Royal D.O. on 08/22/2024 at 17:06
== END ==
PROVIDERS: PCP Family Medicine; Referring Provider Family Medicine; Visit Provider Family Medicine
DX: R07.9 Chest pain, unspecified (principal); I10 Essential (primary) hypertension; E78.5 Hyperlipidemia, unspecified; E11.9 Type 2 diabetes mellitus without complications
CPT/HCPCS: 78452; 93017; A9502